=== PATIENT | male | born 1955 | race Caucasian/White ===

== ENCOUNTER 2020-04-10 13:11 | Outpatient (REF) | payer MEDICARE, MEDICAID, SELFPAY ==
[2020-04-10 18:51] LABS: HCT 48.3 % (40.0-50.0); HGB 16.4 g/dL (13.5-17.5); Mean Corpuscular Volume 100.2 fL (80-95); Mean Platelet Volume 10.7 fL (8.0-11.0); Platelet Count 249 x1000/uL (130-400); RBC 4.82 m/cumm (4.50-6.00); RBC Distribution Width 15.3 % (11.8-14.1); White Blood Cell Count 6.84 k/cumm (4.4-10.8)
[2020-04-10 19:31] LABS: ALT 34 U/L (16-63); AST 25 U/L (15-37); Albumin 3.9 g/dL (3.4-5.0); Alkaline Phosphatase 139 U/L (46-116); Anion Gap 10.4 mmol/L (3-11); BUN 18 mg/dL (7-18); Bilirubin, Total 0.5 mg/dL (0.2-1.0); CO2 25.6 mmol/L (21.0-32.0); Calculated LDL 78 mg/dL (<100); Chloride 106 mmol/L (98-107); Cholesterol 185 mg/dL (<200); Glucose 98 mg/dL (74-106); HDL Cholesterol 59 mg/dL (40-60); Potassium 3.8 mmol/L (3.5-5.1); Sodium 142 mmol/L (136-145); TSH 4.61 uIU/mL (0.36-3.74); Total Protein 7.2 g/dL (6.4-8.2); Triglyceride 241 mg/dL (<150)
== END 2020-04-10 13:31 ==
LOC: NCHCN 13:11
PROVIDERS: Visit Provider Nurse Practitioner Family
DX: F32.9 Major depressive disorder, single episode, unspecified (principal); E78.1 Pure hyperglyceridemia; J44.9 Chronic obstructive pulmonary disease, unspecified; N40.0 Benign prostatic hyperplasia without lower urinary tract symptoms; Z86.718 Personal history of other venous thrombosis and embolism
CPT/HCPCS: 80053; 80061; 85027; 84443

== ENCOUNTER 2020-12-18 02:24 | Outpatient (CLI) | payer MEDICARE, MEDICAID, SELFPAY ==
[2020-12-19 20:31] LABS: COVID-19 RT-PCR UVMMC Result Negative (Negative)
== END 2020-12-18 02:25 | disposition home or self-care (01) ==
LOC: LBO 02:26
PROVIDERS: Visit Provider Surgery
DX: Z20.822 Contact with and (suspected) exposure to COVID-19 (principal); Z01.818 Encounter for other preprocedural examination
CPT/HCPCS: U0003; U0005

== ENCOUNTER → 2021-01-31 01:39 | Outpatient (CLI) | payer MEDICARE, SELFPAY ==
--- NOTE | 2021-01-31 09:04 | DI.RAD_ITS ---
EXAM: RF BARIUM SWALLOW UGI CLINICAL HISTORY: PREOP,Z01.89,DIAPHRAGMATIC HERNIA,K44.9 TECHNIQUE: 2D and realtime digital imaging was performed. CONTRAST MATERIAL: Oral barium Oral water soluble contrast was administered. COMPARISON: No exams were available for comparison FINDINGS: Preliminary view standing reveals no free air subjacent to the hemidiaphragms. There is a dorsal fix ation plate across 1 of the clavicles, difficult to assess which clavicle ESOPHAGRAM: Esophagram was performed both standing and recumbent. There was no aspiration evident on this study. A hypertense upper esophageal sphincter is demonstrat ed at C5 level. Mild tertiary waves were demonstrated in the mid-lower esophagus but without evidenc e of fixed lesion. No Zenker's diverticulum. No diverticuli. STOMACH: Almost the entire stomach is in the chest and there is an element of organoaxial rotation. No obvious ulcer craters nor fixed lesions seen within the stomach. DUODENUM: No ulcer craters or strictures. IMPRESSION: Huge hiatal hernia. 3/4 of the stomach is in the chest with element of rotation but without signific ant dilatation of the esophagus. No obvious fixed lesions soft guess. No obvious ulcers. Mild refl ux demonstrated is
[2021-01-31] MEDS: Barium Sulfate 60% W/V 355 ML BTL PO (09:41)
== END ==
PROVIDERS: PCP Nurse Practitioner Family; Visit Provider Surgery
DX: K44.9 Diaphragmatic hernia without obstruction or gangrene (principal); K21.9 Gastro-esophageal reflux disease without esophagitis
CPT/HCPCS: 74221; 74246; J3490

== ENCOUNTER 2021-05-10 15:25 | Outpatient (REF) | payer MEDICARE, SELFPAY ==
[2021-05-10 19:31] LABS: HCT 50.9 % (40.0-50.0); HGB 17.2 g/dL (13.5-17.5); MCH 33.4 pg (27.0-33.0); MCHC 33.8 % (32.0-36.0); MCV 98.8 fL (80-95); MPV 10.5 fL (8.0-11.0); Platelet Count 234 10^3/uL (130-400); RBC 5.15 10^6/uL (4.36-5.78); RDW 14.7 % (11.8-14.1); RDW-SD 53.4 fL; WBC 6.08 10^3/uL (4.4-10.8)
[2021-05-10 19:46] LABS: ALT 24 U/L (16-63); AST 15 U/L (15-37); Albumin 4.2 g/dL (3.4-5.0); Alkaline Phosphatase 111 U/L (46-116); Anion Gap 9.2 mmol/L (3-11); BUN 31 mg/dL (7-18); Bilirubin, Total 0.8 mg/dL (0.2-1.0); CO2 25.8 mmol/L (21.0-32.0); CREATININE 1.2 mg/dL (0.70-1.30); Chloride 106 mmol/L (98-107); Glucose 107 mg/dL (74-106); Potassium 4.6 mmol/L (3.5-5.1); Sodium 141 mmol/L (136-145); Total Protein 7.8 g/dL (6.4-8.2)
== END 2021-05-10 15:26 | disposition home or self-care (01) ==
LOC: NCHCN 15:25
PROVIDERS: PCP Nurse Practitioner Family; Visit Provider Nurse Practitioner Family
DX: Z00.00 Encounter for general adult medical examination without abnormal findings (principal); E78.1 Pure hyperglyceridemia
CPT/HCPCS: 80053; 85027

== ENCOUNTER → 2021-05-23 01:49 | Outpatient (CLI) | payer MEDICARE, SELFPAY ==
--- NOTE | 2021-05-23 | DI.CTLCSR_ITS ---
Exam(s) CT CHEST LUNG CANCER SCREEN EXAM: CT CHEST LUNG CANCER SCREEN CLINICAL HISTORY: SCREENING FOR LUNG CA, CURRENT SMOKER, F17.210,H/O BLOOD CLOTS. TECHNIQUE: Imaging Protocol: Low Dose Technique CONTRAST MATERIAL: None COMPARISON: No exams were available for comparison FINDINGS: CHEST: LUNGS: There is nodular infiltrate in the right upper lobe requires close follow-up to rule out malig lobito.. There are no significant focal findings in the right middle lobe.. There are no confluent i nfiltrates. No pleural effusions. In the right lower lobe there is some focal pleural thickening se en posteriorly over the superior segment. There are also benign-appearing increased markings in the medial basal segment of the right lower lobe adjacent to a huge hiatal hernia. No pleural effusion. In the opposite-left lung there are no significant findings nor pleural effusion. MEDIASTINUM: There is no obvious hilar nor mediastinal adenopathy. CARDIAC: Heart size is normal. There is no pericardial effusion.Coronary artery calcification is not ed. Diameter of the ascending thoracic aorta is enlarged, measuring 4.2 cm. The diameter of the tho racic arch is 3.3 cm. Diameter of the proximal descending thoracic aorta is 3.4 cm. Diameter of the distal descending thoracic aorta is 3 cm. OTHER: There is a large hiatal hernia. Indeed, most of the stomach is in the chest. OSSEOUS: There are healed bilateral rib fractures. No lytic osseous lesions identified.. IMPRESSION: 1. Significant nodular infiltrate in the right upper lobe which requires close follow-up to rule out malignancy. 2. No pleural effusions. No obvious intrathoracic adenopathy. Huge hiatal hernia. Dilated ascendin g thoracic aorta diameter of 4.2 cm. Bilateral healed rib fractures noted. 3. Lung RADS Cat 4A - Suspicious: Findings for which additional diagnostic testing and/or tissue samp ling recommended. Three-month follow-up CT scan Lung-RADS 1.0 CATEGORIES: Category 0 - Prior chest CT exam(s) being located for comparison. Category 1 - Annual screening in 12 months. No nodules or definitely benign nodules. Category 2 - Annual screening in 12 months. Benign appearance. Nodules with low likelihood of becomin g active cancer. Category 3 - 6-month follow-up. Probably benign. Short-term follow-up suggested. Nodules with low lik elihood of becoming active cancer. Category 4A - 3-month follow-up and CT/PET if >8 mm in size. Suspicious finding. Findings which requi re additional testing. Category 4B - Findings which require additional testing and tissue sampling. Modifier S- Potentially clinically significant findings (non lung cancer) RADIATION DOSE DELIVERED: 83.08mGy.cm Total DLP 1.84mGy CTDIvol DATA REPOSITORY: All CT scans at this facility are submitted to the National Radiology Data Registry (NRDR) Dose Index Registry (DIR) with the [employer] ([employer]). RADIATION OPTIMIZATION: All CT scans at this facility use at least one of these dose optimization te chniques: automated exposure control; mA and/or kV adjustment per patient size (includes targeted exa ms where dose is matched to clinical indication); or iterative reconstruction.
== END ==
PROVIDERS: PCP Nurse Practitioner Family; Visit Provider Nurse Practitioner Family
DX: Z12.2 Encounter for screening for malignant neoplasm of respiratory organs (principal); R91.8 Other nonspecific abnormal finding of lung field; K44.9 Diaphragmatic hernia without obstruction or gangrene; I77.810 Thoracic aortic ectasia; F17.210 Nicotine dependence, cigarettes, uncomplicated; Z86.718 Personal history of other venous thrombosis and embolism
CPT/HCPCS: 71271

== ENCOUNTER 2021-06-15 01:27 | Outpatient (CLI) | payer MEDICARE, SELFPAY ==
[2021-06-15] MEDS: Albuterol HFA 18 GM 200 PUFF INH IH (14:01)
[2021-06-15] MEDS: Inhaler, Assist Device 1 EACH MC (14:02)
--- NOTE | 2021-06-17 18:29 | W.PFT ---
Date of service: 06/15/21 Time of Service: 13:07 Pulmonary Function Test Result Interpretation Spirometry: There is mild airflow obstruction with a significant bronchodilator response. Lung Volumes: Lung volumes are normal Diffusion Capacity: The corrected DLCO is reduced. Airway Pressure: Airway resistance is normal Impression There is mild chronic airflow obstruction with significant bronchodilator response and a reduced diffusion. Clinical Correlation therefore is recommended.
== END 2021-06-15 01:28 | disposition home or self-care (01) ==
LOC: RT 01:28
PROVIDERS: PCP Nurse Practitioner Family; Visit Provider Student in an Organized Health Care Education/Training Program
DX: J44.9 Chronic obstructive pulmonary disease, unspecified (principal)
CPT/HCPCS: 94060; 94726; 94729